=== PATIENT | male | born 1950 | race Caucasian/White ===

== ENCOUNTER → 2018-03-13 | Outpatient (CLI) | payer OTHER ==
[~2018-03-13] MED LIST: ASPIR 8181 MG PO; CHLORTHALIDONE25 MG PO; FLOMAX0.4 MG PO; LISINOPRIL5 MG PO; OMEGA-31000 M1 PO; VITAMIN D1000 UNI1 PO; ZOCOR20 MG PO
--- NOTE | ~2018-03-13 | EKG ---
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
== END | disposition home or self-care (01) ==
LOC: LITH 06:44
DX: N20.0 Calculus of kidney (principal); E78.00 Pure hypercholesterolemia, unspecified; Z85.46 Personal history of malignant neoplasm of prostate; Z90.49 Acquired absence of other specified parts of digestive tract; Z90.81 Acquired absence of spleen; Z87.442 Personal history of urinary calculi; Z79.82 Long term (current) use of aspirin; Z79.899 Other long term (current) drug therapy; Z98.890 Other specified postprocedural states

== ENCOUNTER → 2018-12-04 | Outpatient (CLI) | payer OTHER ==
--- NOTE | 2018-12-05 08:00 | EKG ---
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: DENISE : 1950 Requested By: Beni Huff Order Number: [id number] MD: Jaime Brasher Measurements Intervals [place] Rate: 71 P: 27 NC: 184 QRS: 33 QRSD: 94 T: 31 QT: 398 QTc: 433 Interpretive Statements Sinus rhythm Early R-wave progression Compared to ECG 03/13/2018 07:22:00 No significant changes Electronically Signed On 12-05-2018 8:00:26 CDT by Jaime Brasher [email or web address] ��������������������������������������������� <ELECTRONICALLY SIGNED> ���������������������������������������� By: Jaime Brasher MD, [facility] ��������������������������������������������� 12/05/18 0800 1223 122 Jaime Brasher MD, FACC /EPI
== END | disposition home or self-care (01) ==
LOC: LITH 11:48
DX: N20.0 Calculus of kidney (principal); E78.00 Pure hypercholesterolemia, unspecified; Z85.46 Personal history of malignant neoplasm of prostate; Z98.890 Other specified postprocedural states; Z90.49 Acquired absence of other specified parts of digestive tract; Z79.899 Other long term (current) drug therapy; Z79.82 Long term (current) use of aspirin